=== PATIENT | male | born 1965 | race Caucasian/White ===

== ENCOUNTER 2019-03-23 19:13 | Emergency (ER) | payer SELFPAY ==
--- NOTE | 2019-03-23 19:49 | EDM.PDOC ---
ED HPI GENERAL MEDICAL PROBLEM - General Chief Complaint: Neuro Symptoms/Deficits Stated Complaint: FACIAL NUMBNESS Time Seen by Provider: 03/23/19 19:20 Source of Information: Reports: Patient History Limitations: Reports: No Limitations - History of Present Illness INITIAL COMMENTS - FREE TEXT/NARRATIVE: According to patient he fell and hit the forehead against the hard floor about 1 wk ago. There was no loss of consciousness. No bleeding from ENT. No vision loss. No weakness in the extremities. But since the fall her claims that he has a pressure behind his eyes,which is constant. No headache. Also today he claims his face has been numb over the forehead. Also feels nausea on and off since the fall. But, no vomiting. No other complaints. Onset Date: 03/16/19 Duration: Week(s): Location: Reports: Head Quality: Reports: Pressure Severity: Mild Improves with: Reports: None Worsens with: Reports: None Associated Symptoms: Reports: Nausea/Vomiting. Denies: Confusion, Chest Pain, Cough, Fever/Chills, Headaches, Rash, Seizure, Shortness of Breath, Syncope, Weakness - Related Data Allergies Allergy/AdvReac Type Severity Reaction Status Date / Time peanut Allergy Difficulty Verified 03/23/19 19:54 Breathing Home Meds: Home Meds NK [No Known Home Meds] 03/23/19 [History] ED ROS GENERAL - Review of Systems Review Of Systems: See Below Constitutional: Denies: Fever, Chills HEENT: Denies: Ear Pain, Eye Discharge, Hearing Loss, Rhinitis, Throat Pain, Vision Change Respiratory: Denies: Shortness of Breath, Cough, Sputum Cardiovascular: Denies: Chest Pain, Lightheadedness, Syncope GI/Abdominal: Reports: Nausea. Denies: Abdominal Pain, Constipation, Diarrhea, Vomiting : Denies: Dysuria, Frequency Musculoskeletal: Denies: Joint Pain, Joint Swelling Skin: Denies: Bruising, Pruritis, Rash Neurological: Denies: Confusion, Dizziness, Headache, Numbness, Tingling, Weakness ED EXAM, GENERAL - Physical Exam Exam: See Below Exam Limited By: No Limitations General Appearance: Alert, WD/WN, No Apparent Distress, Obese Eye Exam: Bilateral Eye: EOMI, PERRL Ears: Normal External Exam, Normal Canal, Hearing Grossly Normal, Normal TMs Ear Exam: Bilateral Ear: Auricle Normal, Canal Normal, TM normal Nose: Normal Inspection, Normal Mucosa, No Blood Throat/Mouth: Normal Inspection, Normal Lips, Normal Teeth, Normal Gums, Normal Oropharynx, Normal Voice, No Airway Compromise Head: Atraumatic, Normocephalic Neck: Normal Inspection, Supple, Non-Tender, Full Range of Motion Respiratory/Chest: No Respiratory Distress, Lungs Clear, Normal Breath Sounds, No Accessory Muscle Use, Chest Non-Tender Cardiovascular: Normal Peripheral Pulses, Regular Rate, Rhythm, No Edema, No Gallop, No JVD, No Murmur, No Rub Extremities: Normal Inspection, Normal Range of Motion, Non-Tender, Normal Capillary Refill, No Pedal Edema Neurological: Alert, Oriented, CN II-XII Intact, Normal Cognition, Normal Gait, Normal Reflexes, No Motor/Sensory Deficits Psychiatric: Normal Affect, Normal Mood Skin Exam: Warm, Intact Course - Vital Signs Text/Narrative:: Pt' Clinical exam is normal. His Blood pressure is elevated at 153/107mmhg, but repeat blood pressure was down to 148/97mmhg. Pt claims that he never had elevated blood pressure.Pt claims that he does not have health insurance and wants minimal workup necessary. But patient c/o on constant head pressure over the forehead since his fall 1 wks ago and also has intermittent nausea. I did recommend Ct head as there might be subdural hematoma causing head pressure. IF Ct is negative, he might be having elevated blood pressure causing it. Pt's Ct head is negative for subdural hematoma or acute bleed.Pt reassured. he did receive lisinopril 10mg and was monitored in the emergency room. His repeat Blood pressure in 30 minutes was down to 130/70mmhg. Pt reassured, that his symptoms might be related to elevated blood pressure. Pt advised to followup in clinic for blood pressure work up. He did get lisinopril 10 mg daily for the weekend from the hospital. - Orders/Labs/Meds Orders: Active Orders 24 hr Category Date Time Status Head wo Cont [CT] Stat Exams 03/23/19 19:40 Ordered Departure - Departure Time of Disposition: 21:00 Disposition: Home, Self-Care 01 Condition: Fair Clinical Impression: Elevated blood pressure reading, Posttraumatic headache - Discharge Information *PRESCRIPTION DRUG MONITORING PROGRAM REVIEWED*: Not Applicable *COPY OF PRESCRIPTION DRUG MONITORING REPORT IN PATIENT FORREST: Not Applicable Instructions: Hypertension, [id number], Lisinopril tablets Forms: ED Department Discharge Care Plan Goals[place] [facility] [place] Problem List & Annotations (1) Elevated blood pressure reading SNOMED Code(s): 11914546 Code(s): R03.0 - ELEVATED BLOOD-PRESSURE READING, W/O DIAGNOSIS OF HTN Status: Acute Current Visit: Yes (2) Posttraumatic headache Status: Acute Current Visit: Yes - Problem List Review Problem List Initiated/Reviewed/Updated: Yes - My Orders Last 24 Hours: My Active Orders 03/23/19 19:40 Head wo Cont [CT] Stat - Assessment/Plan Last 24 Hours: My Active Orders 03/23/19 19:40 Head wo Cont [CT] Stat Assessment:: elevated blood pressure Post trauma head pressure Plan: Pt' Clinical exam is normal. His Blood pressure is elevated at 153/107mmhg, but repeat blood pressure was down to 148/97mmhg. Pt claims that he never had elevated blood pressure.Pt claims that he does not have health insurance and wants minimal workup necessary. But patient c/o on constant head pressure over the forehead since his fall 1 wks ago and also has intermittent nausea. I did recommend Ct head as there might be subdural hematoma causing head pressure. IF Ct is negative, he might be having elevated blood pressure causing it. Pt's Ct head is negative for subdural hematoma or acute bleed.Pt reassured. he did receive lisinopril 10mg and was monitored in the emergency room. His repeat Blood pressure in 30 minutes was down to 130/70mmhg. Pt reassured, that his symptoms might be related to elevated blood pressure. Pt advised to followup in clinic for blood pressure work up. He did get lisinopril 10 mg daily for the weekend from the hospital.
[2019-03-23] MEDS ORDERED: Lisinopril 10 MG Tab ONE (20:00)
--- NOTE | 2019-03-24 16:48 | CT ---
Date of Service: 03/23/19 Clinical Data: headache.facial numbness.Fell & hit head 1wk ago UNENHANCED BRAIN CT: Multislice acquisition through the brain without IV contrast was performed. No masses or mass effect. No intracranial hemorrhage. No evidence of acute or subacute infarct. There is a rounded low density lesion in the right sphenoid sinus consistent with a retention cyst or polyp. No osseous abnormalities. IMPRESSION: No acute intracranial abnormalities. [id number] [facility]
== END 2019-03-23 20:43 | disposition home or self-care (01) ==
LOC: LB.ED 19:13 → MERGE 19:13 → LB.ED 20:43
DX: G44.309 Post-traumatic headache, unspecified, not intractable (principal); R03.0 Elevated blood-pressure reading, without diagnosis of hypertension; Z91.010 Allergy to peanuts
CPT/HCPCS: 70450; 99284-25; A9270-GY

== ENCOUNTER 2023-05-29 11:25 | Emergency (ER) | payer SELFPAY ==
[2023-05-29] MEDS: Aspirin 81 MG Tab.Chew PO ONE (12:04)
[2023-05-29] MEDS ORDERED: Sodium Chloride 0.9% 10 ML Syringe FLUSH PRN (12:10)
[2023-05-29] MEDS: Sodium Chloride 0.9% 500 ML IV ONE ×2 (12:16→13:02)
[2023-05-29 12:21] LABS: BASOPHILS ABSOLUTE AUTO 0.02 K/uL (0.02-0.10); BASOPHILS PERCENT AUTO 0.3 % (0.0-0.5); EOSINOPHILS ABSOLUTE AUTO 0.07 K/uL (0.04-0.40); EOSINOPHILS PERCENT AUTO 0.9 % (1.0-5.0); HEMATOCRIT 46.7 % (40.0-54.0); HEMOGLOBIN 16.4 g/dL (13.0-18.0); MEAN CORPUSCULAR HGB CONC 35.1 g/dL (31.0-35.0); MEAN CORPUSCULAR VOLUME 88 fL (76-96); MEAN PLATELET VOLUME 9.3 fL (6.0-10.0); MONOCYTES ABSOLUTE AUTO 0.38 K/uL (0.20-0.80); MONOCYTES PERCENT AUTO 4.9 % (3.0-10.0); NEUTROPHILS ABSOLUTE AUTO 4.87 K/uL (2.00-7.50); NEUTROPHILS PERCENT AUTO 62.9 % (45.0-70.0); PLATELET COUNT,PLT 190 K/uL (150-400); RED BLOOD CELL COUNT 5.29 M/uL (4.50-6.50); RED CELL DISTRIBUTION WIDTH 12.6 % (11.0-16.0); WHITE BLOOD CELL COUNT,WBC 7.7 K/uL (4.0-11.0)
[2023-05-29 12:43] LABS: A/G RATIO 0.8 (0.8-2.0); ALBUMIN 3.3 g/dL (3.4-5.0); ANION GAP 14.6 mmol/L (5.0-15.0); BILIRUBIN TOTAL 0.6 mg/dL (0.0-1.0); BUN/CREATININE RATIO 8.6 (6-25); CALCIUM 8.8 mg/dL (8.5-10.1); CARBON DIOXIDE,CO2 25.5 mmol/L (21.0-32.0); CREATININE 1.39 mg/dL (0.70-1.30); EST CRCL DRUG DOSING (CG) 60.05 mL/min; MAGNESIUM 1.8 mg/dL (1.8-2.4); POTASSIUM,K 3.1 mmol/L (3.5-5.1); PROTEIN TOTAL,TP 7.3 g/dL (6.4-8.2); TROPONIN I HIGH SENSITIVITY 23.1 pg/ml (<=60.4)
[2023-05-29] MEDS: Potassium Chloride 20 MEQ Tab.ER PO ONE (13:07)
== END 2023-05-29 13:55 | disposition home or self-care (01) ==
LOC: LB.ED 11:25
DX: I47.1 Supraventricular tachycardia (principal); E87.6 Hypokalemia; Z91.010 Allergy to peanuts
CPT/HCPCS: 36415; 80053; 83735; 84484; 85025; 93005; 96360; 99285; A9270; J7040